=== PATIENT | male | born 2000 | race Caucasian/White ===

== ENCOUNTER 2024-06-21 17:07 | Emergency (ER) | payer BC, SELFPAY ==
[2024-06-21 17:16] VITALS: BP 142/89; PULSE 89; RESP 20; TEMP 36.8; O2SAT 100
[2024-06-21] MEDS: naproxen 500 mg Tablet PO (17:35)
[2024-06-21] MEDS: lidocaine-epi 2% 20 mL INJ INJECTION (17:36)
--- NOTE | 2024-06-21 17:57 | ED_ITS ---
HPI - Wound/Laceration General: Chief Complaint: Wound/Laceration Stated Complaint: open wond on left leg, bleeding Time Seen by Provider: 06/21/24 17:25 Source: patient Mode of arrival: ambulatory Limitations: no limitations History of Present Illness: Patient is a 23-year-old male present to the emergency department with anterior left leg laceration that he suffered about an hour prior to arrival. He states he cut it on a piece of sheet metal, wrapped it immediately and bleeding is controlled upon arrival to the emergency department. He states he is still unable to walk, denies any distal neurovascular changes. No contamination or foreign body reported. Tetanus is up-to-date. Onset (ago): hour(s) Extremity Location: Left: lower leg Place: home Patient tetanus UTD: Yes Context: accidental Associated symptoms: Denies chills, fever(s), nausea or vomiting Treatments prior to arrival: bandage Related Data Previous Rx's Medication Instructions Recorded cephalexin 500 mg capsule 500 mg PO BID 5 days #10 caps 06/21/24 Allergies Allergy/AdvReac Type Severity Reaction Status Date / Time Sulfa (Sulfonamide Allergy Intermediate ADR-Back Verified 07/04/22 16:25 Antibiotics) Pain Review of Systems General: Reports: 10 or more systems reviewed and unremarkable except in HPI and below Const: Denies: fever(s) or chills Card: Denies: chest pain Resp: Denies: dyspnea GI: Denies: abdominal pain, nausea, vomiting or diarrhea Musc: Reports: extremity pain (Left lower); Denies: joint pain Skin/Breast: Reports: skin pain, skin tenderness and new lesions (Laceration to anterior left lower leg); Denies: rash Neuro: Denies: headache(s) Physical Exam Const: COMMON NORMALS: no acute distress, average body habitus, patient oriented x3, no limitations, healthy appearing, alert and well nourished HENMT: COMMON NORMALS: normocephalic and atraumatic HEAD & SCALP: normocephalic and atraumatic Neck/C-Spine: COMMON NORMALS: full ROM, no lymphadenopathy, supple and no meningeal signs Resp: COMMON NORMALS: normal respiratory effort, No use of accessory muscles and clear to auscultation bilaterally AUSCULTATION: clear to auscultation bilaterally Cardio: COMMON NORMALS: regular rate and regular rhythm RATE: regular rate RHYTHM: regular rhythm Extremity: COMMON NORMALS: full ROM and capillary refill normal Neuro: COMMON NORMALS: patient oriented x3 SENSORIUM/ORIENTATION: Yes alert MENINGEAL SIGNS: Yes no meningeal signs Skin: COMMON NORMALS: turgor normal NARRATIVE SKIN EXAM: 7.5 cm laceration, linear, the left ante rior lower extremity with no active bleeding, contamination, or foreign body. GENERAL SKIN EXAM: turgor normal Procedures Laceration Laceration 1: Site: lower extremity Side (If applicable): left Size (cm): 7.5 Description: linear and clean Depth: simple, single layer Local Anesthetic: lidocaine 2% and with epi Amount of anesthesia used (mL): 5 Pre-repair: wound explored, irrigated extensively and deep structures intact Skin layer closed with: other (Prolene) Size (cm): 4-0 Number of sutures: 9 Technique: simple, interrupted Course Vital Signs: Vital signs: Vital Signs Temperature 98.2 F 06/21/24 17:16 Pulse Rate 89 06/21/24 17:16 Respiratory Rate 20 H 06/21/24 17:16 Blood Pressure 142/89 06/21/24 17:16 Pulse Oximetry 100 06/21/24 17:16 Oxygen Delivery Me thod Room Air 06/21/24 17:16 MDM - Wound/Laceration Medical Decision Making Patient has laceration to left lower extremity, tetanus up-to-date. No distal neurovascular symptoms, laceration had exposure of adipose tissue but did not involve any deep structures. Wound was clean, but was further cleaned with Betadine as well as irrigation and scrubbing, was locally anesthetized, and repaired. See procedure note. He tolerated the procedure well, was dressed appropriately afterwards and wound care was discussed. He is to have the sutures out in 7-10 days, and will be started on a short course of antibiotics empirically. No radiology studies performed this visit Discharge Plan Discharge Patient Disposition: Home Clinical Impression: Laceration of left leg Condition: Stable Prescriptions: New cephalexin 500 mg capsule 500 mg PO BID 5 Days Qty: 10 0RF Discharge Orders: Discharge ED (Routine); Ordered 06/21/24 Ordered By: Nahum Anderson Referrals: Debbie Florez FNP [Primary Care Provider] - Janak Rodriguez Jr, MD [Family Provider] - Patient Instructions: Laceration (ED) Activity Restrictions/Additional Instructions: Sutures out in 7-10 days. Antibiotics as prescribed. Tylenol/ibuprofen for pain. Do not expose wound to shower for the first 48 hours, afterwards you may dab clean with soap and water. Avoid sun exposure. Return with any fever, swelling, redness, or other concerning signs or symptoms of infection. Coding Level of Care Code ED Household Worker for Burt Messer
[2024-06-21 18:02] VITALS: BP 108/60; PULSE 88; RESP 14; O2SAT 99
== END 2024-06-21 18:03 | disposition home or self-care (01) ==
PROVIDERS: Emergency Provider Physician Assistant; Family Provider Pediatrics Adolescent Medicine; PCP Nurse Practitioner Family
DX: S81.812A Laceration without foreign body, left lower leg, initial encounter (principal); X58.XXXA Exposure to other specified factors, initial encounter
CPT/HCPCS: 12002; 99283

== ENCOUNTER 2024-08-08 09:26 | Emergency (ER) | payer BC, SELFPAY ==
[2024-08-08 09:33] VITALS: BP 176/89; PULSE 85; RESP 18; TEMP 36.7; O2SAT 98; BMI 22.3
--- NOTE | 2024-08-08 09:51 | ED_ITS ---
HPI - Wound/Laceration General: Chief Complaint: Wound/Laceration Stated Complaint: cut on right arm Time Seen by Provider: 08/08/24 09:42 Source: patient Mode of arrival: ambulatory Limitations: no limitations History of Present Illness: Patient is a nice 23-year-old male who presents to ED today for evaluation of a laceration to his volar right forearm that he sustained while at work after accidentally cutting it on a piece of sheet metal. Tetanus is up-to-date. Onset (ago): hour(s) Extremity Location: Right: forearm Place: work Patient tetanus UTD: Yes Context: accidental Associated symptoms: Reports no associated symptoms Treatments prior to arrival: bandage Related Data Allergies Allergy/AdvReac Type Severity Reaction Status Date / Time Sulfa (Sulfonamide Allergy Intermediate ADR-Back Verified 07/04/22 16:25 Antibiotics) Pain Review of Systems Musc: Reports: extremity pain Skin/Breast: Reports: other (laceration R volar forearm) Neuro: Denies: numbness in extremities, weakness in extremities or sensory changes Physical Exam Const: COMMON NORMALS: no acute distress, average body habitus, no limitations, healthy appearing, alert and well nourished Extremity: COMMON NORMALS: full ROM and capillary refill normal GENERAL: Yes normal exam except as noted RIGHT UPPER EXTREMITY: Yes lower arm (4.5cm laceration volar forearm; no tendon/muscle involvement) Right lower arm: Yes neurovascular exam (normal) and Yes other (full ROM of all digits and wrist) Neuro: COMMON NORMALS: moves all extremities, no focal motor deficits and no sensory deficits noted SENSORIUM/ORIENTATION: Yes alert Skin: TRAUMA: laceration Procedures Laceration Laceration 1: Site: upper extremity Side (If applicable): right Size (cm): 4.5 Description: linear Depth: simple, single layer Local Anesthetic: lidocaine 1% and with epi Amount of anesthesia used (mL): 2.0 Pre-repair: wound explored and irrigated extensively Skin layer closed with: nylon Size (cm): 3-0 Number of sutures: 5 Technique: simple, interrupted Course Vital Signs: Vital signs: Vital Signs Temperature 98.1 F 08/08/24 09:33 Pulse Rate 85 08/08/24 09:33 Respiratory Rate 18 08/08/24 09:33 Blood Pressure 176/89 08/08/24 09:33 Pulse Oximetry 98 08/08/24 09:33 Oxygen Delivery Me thod Room Air 08/08/24 09:33 MDM - Wound/Laceration Medical Decision Making Wound copiously irrigated and repaired as documented. His tetanus was up-to-date. Recommend he follow-up with his HR department for Worker's Comp injury. Wound care/infection precautions discussed. Differential Diagnosis Likely laceration Medical Records I reviewed the patient's medical records. No radiology studies performed this visit Discharge Plan Discharge Patient Disposition: Home Clinical Impression: Laceration of forearm, right Qualifiers: Encounter type: initial encounter Qualified Code(s): S51.811A - Laceration without foreign body of right forearm, initial encounter Condition: Stable Discharge Orders: Discharge ED (Routine); Ordered 08/08/24 Ordered By: Teresita Erwin Referrals: Debbie Florez FNP [Primary Care Provider] - Janak Rodriguez Jr, MD [Family Provider] - Patient Instructions: Laceration (DC) Activity Restrictions/Additional Instructions: Keep wound/laceration clean with warm soap and water twice daily. Monitor for signs of infection such as redness, swelling, increased pain, or drainage. Please seek medical re-evaluation if these occur. If you received sutures today these will need to be removed (unless you were told by the provider that they are absorbable). The provider should have discussed with you the length of time until removal-7 TO 10 DAYS. Coding Level of Care Code ED Authorization Representative for Burt Messer
[2024-08-08] MEDS: lidocaine-epi 1% 20 mL INJ INJECTION (09:53)
[2024-08-08 10:12] VITALS: PULSE 82; O2SAT 98
== END 2024-08-08 10:14 | disposition home or self-care (01) ==
PROVIDERS: Emergency Provider Physician Assistant; Family Provider Pediatrics Adolescent Medicine; PCP Nurse Practitioner Family
DX: S51.811A Laceration without foreign body of right forearm, initial encounter (principal); X58.XXXA Exposure to other specified factors, initial encounter
CPT/HCPCS: 12002; 99283

== ENCOUNTER 2025-05-08 17:39 | Emergency (ER) | payer BC, SELFPAY ==
--- OUTSIDE RECORDS SUMMARY | 2025-05-08 17:45 | XMS_ITS | Patient Health Record ---
Author Organization [facility] Billing Info Address [address] [place] [id number] Support Name Relationship Address Phone [place]ot belloe Guarantor Unknown [phone] Reason For Referral No Information Medications Medication SIG (Take, Route, Frequency, Duration) Notes Start Date End Date Status Ventolin HFA 108 (90 Base) MCG/ACT 2 puffs as needed Inhalation every 4 hrs Active Nortriptyline HCl 25 MG 1 capsule Orally Once a day at bedtime 10/20/2016 Active Ibuprofen 800 MG 1 tablet Orally Thre e times a day for 30 day(s) 10/29/2016 Active Social History Tobacco Use: Social History Observation Description Date Details (start date - stop date) Never Smoker NA - NA Tobacco Status: Question Answer Notes Patient is a never smoker Plan Of Treatment No Information Insurance Providers Payer Name Payer Address Payer Phone Subscriber Number Group Number Insured Name Patient Relationship to Insured Coverage Start Date Coverage End Date [facility] P[facility] OOS [address] [place], [place] [id number] [phone] [id number] Calin Adams Self - patient is the insured
[2025-05-08 17:58] VITALS: BP 145/79; PULSE 52; RESP 18; TEMP 36.7; O2SAT 99; BMI 23.0
== END 2025-05-08 20:18 | disposition left against medical advice (07) ==
PROVIDERS: Emergency Provider Family Medicine
DX: Z53.21 Procedure and treatment not carried out due to patient leaving prior to being seen by health care provider (principal); R51.9 Headache, unspecified; R05.9 Cough, unspecified